=== PATIENT | female | born 1970 | race Caucasian/White ===

== ENCOUNTER 2023-06-18 08:45 | Outpatient (CLI) | payer OTHER, SELFPAY | END 2023-06-18 08:46 | disposition home or self-care (01) | PROVIDERS: PCP Nurse Practitioner Family; Visit Provider Nurse Practitioner Family | DX: Z00.00 Encounter for general adult medical examination without abnormal findings (principal); M25.50 Pain in unspecified joint; Z13.6 Encounter for screening for cardiovascular disorders; Z13.228 Encounter for screening for other metabolic disorders | CPT/HCPCS: 80053; 80061; 85025; 85651; 86039; 86140; 86431; 86812 ==

== ENCOUNTER 2023-09-14 10:00 | Outpatient (CLI) | payer OTHER, SELFPAY ==
--- NOTE | 2023-09-14 10:15 | CRLHL7_ITS ---
For Patients: As a result of the Century Cures Act, medical imaging exams and procedure reports are released immediately into your electronic medical record. You may view this report before your referring provider. If you have questions, please contact your health care provider. BILATERAL SCREENING MAMMOGRAM WITH COMPUTER-AIDED DETECTION AND TOMOSYNTHESIS TECHNIQUE: CC and MLO views were obtained. These mammographic images have been obtained using full-field digital technique. These mammographic images were interpreted with the benefit of computer-aided detection. Breast Tomosynthesis was used in this interpretation. COMPARISON FILM: 06/19/21, 08/22/18, 10/14/16. FINDINGS: There are scattered areas of fibroglandular density. IMPRESSION: There is no radiographic evidence for malignancy. ASSESSMENT: BI-RADS Category 1: Negative RECOMMENDATION: Routine screening mammogram in 1 year. A lay language report of this examination will be provided to the patient. Raymond Dallas M.D. Diagnostic Radiologist [email or web address] SP/Dictated by: Raymond Dallas MD @ 09/17/2023 11:22:00 AM (Electronically Signed)
== END 2023-09-14 10:01 | disposition home or self-care (01) ==
LOC: MAMMO 10:01
PROVIDERS: PCP Nurse Practitioner Family; Visit Provider Nurse Practitioner Family
DX: Z12.31 Encounter for screening mammogram for malignant neoplasm of breast (principal)
CPT/HCPCS: 77063; 77067

== ENCOUNTER 2023-11-16 14:40 | Outpatient (CLI) | payer OTHER, SELFPAY | END 2023-11-16 14:41 | disposition home or self-care (01) | LOC: NFLDREF 11-19 12:11 | PROVIDERS: PCP Nurse Practitioner Family; Referring Provider Nurse Practitioner Family; Visit Provider Nurse Practitioner Family | DX: M25.50 Pain in unspecified joint (principal); M25.551 Pain in right hip; M25.552 Pain in left hip; M54.50 Low back pain, unspecified; Z11.9 Encounter for screening for infectious and parasitic diseases, unspecified | CPT/HCPCS: 86618 ==

== ENCOUNTER 2025-07-23 08:22 | Outpatient (CLI) | payer OTHER, SELFPAY | END 2025-07-23 08:23 | disposition home or self-care (01) | PROVIDERS: PCP Nurse Practitioner Family; Visit Provider Nurse Practitioner Family | DX: E78.5 Hyperlipidemia, unspecified (principal); Z13.1 Encounter for screening for diabetes mellitus; Z13.0 Encounter for screening for diseases of the blood and blood-forming organs and certain disorders involving the immune mechanism | CPT/HCPCS: 80053; 80061; 85025 ==